=== PATIENT | female | born 1950 | race Caucasian/White ===

== ENCOUNTER 2022-08-18 10:12 | Emergency (ER) | payer MEDICARE, SELFPAY ==
--- NOTE | ~2022-08-18 | US_ITS ---
EXAMINATION: US VENOUS ULTRASOUND WITH DOPPLER LOWER EXTREMITY, RIGHT CLINICAL INFORMATION: Right lower extremity pain COMPARISON: None available. TECHNIQUE: Ultrasound of the deep veins is performed from the hip to the calf with compression sonography and color and pulse Doppler assessment. Spectral analysis with color-flow imaging is performed. FINDINGS: There is normal venous compression and respiratory variation and augmented flow. The visualized common femoral vein, superficial femoral vein, profunda femoral vein, popliteal vein, and the trifurcation region shows no evidence of deep venous thrombosis. There is no significant popliteal fossa cyst. If the patient's symptoms persist, followup ultrasound in 5 days 7 days might be of value to exclude proximal propagation from a non-visualized calf vein. US/US venous duplex LE RT IMPRESSION: No DVT demonstrated in the right lower extremity.
[2022-08-18 10:18] VITALS: BP 164/74; BP 168/100; PULSE 63; PULSE 82; RESP 16; TEMP 36.5; O2SAT 97; BMI 29.9
--- NOTE | 2022-08-18 10:20 | ED.GENADULT ---
HPI - General Adult General Chief complaint: Extremity Problem Stated complaint: Leg pain x 1 week, leg hot to touch per EMS Time Seen by Provider: 08/18/22 10:12 Source: patient, EMS, RN notes reviewed and old records reviewed Mode of arrival: EMS History of Present Illness HPI narrative: 72-year-old female with no significant past medical history presenting to the ED complaining of RLE pain, swelling, erythema/warmth x 1 week. Patient admits symptoms worse with ambulation/exertion. Called PCP who instructed patient to come to the ED for DVT rule out. Denies injury/trauma or fall, numbness, tingling, weakness, recent travel, SOB, CP, history of blood clot. Denies taking anticoagulation Onset (ago): week(s) Related Data Allergies Allergy/AdvReac Type Severity Reaction Status Date / Time No Known Allergies Allergy Verified 08/18/22 10:24 Review of Systems Review of Systems: Constitutional: No Fever, No Chills, No Fatigue, No Malaise ENT/Mouth: No Hearing loss, No Ear Pain, No Nasal Congestion, No sore throat, No Rhinorrhea, No Swallowing Difficulty Cardiovascular: No Chest Pain, No SOB, + Edema, No Palpitations Respiratory: No Cough, No Sputum, No Dyspnea Gastrointestinal: No Nausea, No Vomiting, No Diarrhea, No Constipation, No Abdominal pain Musculoskeletal: No joint pain, No Myalgias, No Joint Swelling Skin: No Skin Lesions, No rash Neuro: No Weakness, No Dizziness, No Headache Yes all other systems are reviewed and are negative Constitutional: Constitutional: Reports as per [facility] Past Medical History Attestation statement: The following information was validated with the patient. Source: old records reviewed Social History Social History Alcohol intake: never Smoked in Last 30 Days: No Use of substances other than those prescribed or required for medical reasons: No Advance Directives: No Advance Directives Information Provided: Yes Physical Exam ED Vital Signs: Vital Signs - 24 hr 08/18/22 10:18 Temperature 97.7 F Pulse Rate 63 Respiratory Rate 16 Blood Pressure 164/74 H Pulse Oximetry 97 Oxygen Delivery Method Room Air BMI result Body Mass Index 29.9 Const General: cooperative, healthy appearing and no acute distress Orientation/consciousness: patient oriented x3 Limitations: no limitations HENMT Head: Yes normal to inspection and Yes atraumatic Ears: hearing grossly normal bilaterally General nose exam: Normal external nose present Face and sinus: Yes normal facial exam Eyes General: appearance normal, both eyes and all related structures EOM: EOMs intact bilaterally Neck Neck: Yes normal visual inspection and Yes no meningeal signs Resp Effort & Inspection: normal respiratory effort and no respiratory distress Auscultation: clear to auscultation bilaterally, no crackles, no rales, no rhonchi and no wheezes Cardio Rate: regular rate Heart sounds: S1 normal heart sound present and S2 normal heart sound present GI Inspection: Yes normal to inspection Skin Rashes: no rashes Wounds: no wounds Neuro General: patient oriented x3, tone normal and no meningeal signs Extrem Other: Mild RLE swelling. No pitting edema. No erythema/warmth. Mildly tender. Neurovascular intact distally, no crepitus, compartment soft, no ecchymosis Course Course Course Narrative: US venous duplex LE RT IMPRESSION: No DVT demonstrated in the right lower extremity. > patient ambulating in the ED with steady gait -Results discussed with patient, recommended compression stockings and elevation with close PCP follow-up next week. Discussed worrisome signs and symptoms and strict return precautions, and when to return to the emergency department. They verbalized understanding and feel safe for discharge at this time. Medical Decision Making Medical Decision Making MDM Narrative: 72-year-old female with no significant past medical history presenting to the ED complaining of RLE pain, swelling, erythema/warmth x 1 week. On exam vital signs stable, NAD, nontoxic appearing, physical exam as above with mild RLE swelling and tenderness, no erythema/warmth or crepitus. Neurovascularly intact. Lungs CTA. Concern for DVT vs knee OA. No evidence of cellulitis/infection. Pulses intact. Low suspicion for PE, significant PAD, compartment syndrome, septic joint/arthritis Plan: Venous weeks ultrasound Please refer to course for remaining clinical decision making, interpretation of labs/imaging results, and discussions with consultants and/or family members. Differential Diagnosis Differential Diagnoses: The differential diagnosis associated with the presentation includes As above Admission/Observation Consideration of admission/observation: Escalation of care including admission/observation considered Lab Data MDM Lab Attestation statement: I reviewed the patient's lab results. Radiology Impression Discussion of test interpretation with radiology: I have reviewed the radiologist's reading. External Record Review External record reviewed: Inpatient record, Office record, Outpatient record, Prior outpatient labs, Prior outpatient radiology, Primary care record and Outside ED record Tests considered The following testing was considered but not selected: As above Discharge Plan Discharge Clinical Impression: Right leg pain
--- NOTE | 2022-08-18 10:31 | PC.NURSE ---
ultra sound is being done at bedside.
[2022-08-18 11:44] VITALS: BP 132/63; PULSE 58; RESP 16; TEMP 36.4; O2SAT 99
--- NOTE | 2022-08-18 12:47 | PC.NURSE ---
pt requested/given joseline irena and saltine crackers.
== END 2022-08-18 13:05 | disposition home or self-care (01) ==
PROVIDERS: Emergency Provider Emergency Medicine; PCP Family Medicine
DX: M79.661 Pain in right lower leg (principal)
CPT/HCPCS: 93971; 99284